=== PATIENT | male | born 1945 | race Caucasian/White ===

== ENCOUNTER 2020-02-06 10:48 | Emergency (ER) | payer MEDICARE, OTHER, SELFPAY ==
[2020-02-06 10:50] VITALS: BP 192/82; PULSE 76; RESP 16; TEMP 36.2; O2SAT 97; BMI 32.8
--- NOTE | 2020-02-06 11:14 | DI.RAD.S_ITS ---
PROCEDURE: XR CHEST 2V INDICATIONS: left chest/rib pain s/p fell directly on the chest yesterday TECHNIQUE: 2 views of the chest were acquired. COMPARISON: None. FINDINGS: Surgical changes and devices: None. Lungs and pleura: Lungs are clear. No pleural effusions or pneumothorax. Mediastinum: Mediastinal contours are normal. Heart size is normal. Bones and chest wall: No suspicious bony abnormalities. The ribs are not well evaluated due to superimposition. There is suspected cortical irregularity, technically age-indeterminate involving the left lateral fifth rib. Soft tissues appear unremarkable. IMPRESSION: No acute disease. Suspect left lateral fifth rib fracture. For further characterization and assessment, dedicated rib series could be performed Dictated by: Anthony Garcia M.D. on 02/06/2020 at 11:42 Approved by: Anthony Garcia M.D. on 02/06/2020 at 11:46
[2020-02-06] MEDS: ACETAMINOPHEN 325 MG TABLET 650 MG PO (11:29)
[2020-02-06] MEDS: LIDOCAINE PATCH 1 EACH ADH..PATCH TOP (11:29)
--- NOTE | 2020-02-06 11:33 | ED_ITS ---
HPI - Fall <Frantz Glo [facility] - Last Filed: 02/06/20 12:38> General Chief Complaint: Fall Stated Complaint: FELL YESTERDAY LEFT SIDE CHEST PAINS Time Seen by Provider: 02/06/20 10:57 Source: patient Mode of arrival: Ambulatory Limitations: no limitations History of Present Illness HPI Narrative: This is a 74 year male, formal smoker, who presents to ED with significant medical history as diabetes, CAD, hypertension, with chief complain of left chest wall pain. Patient had fall yesterday while he was walking his dog directly onto his chest with the hearing aid bluetooth caught in between his left-sided chest and ground. Patient denies chest pain, breathing difficulty, lightheadedness prior falling. Patient denies hitting his head, mid cervical tenderness, losing consciousness. He states he fell since his dog salt of rabbit and air born and pulled him to a ground. Patient reports pain improves when he splinting his chest and aggravates with coughing and changing position. Patient denies short of breath, dyspnea, or bruise on his chest. Patient has not used any ice pack or medications for his discomfort. Related Data Previous Rx's Medication Instructions Recorded cyclobenzaprine 5 - 10 mg PO BEDTIME PRN #7 tab 02/06/20 lidocaine 1 patch TOP Q24H #30 each 02/06/20 Allergies Allergy/AdvReac Type Severity Reaction Status Date / Time No Known Drug Allergies Allergy Verified 02/06/20 10:54 Review of Systems <Frantz Cody [facility] - Last Filed: 02/06/20 12:38> Review of Systems Narrative: General: Denies fever, chills, fatigue, malaise, sweats. HEENT: Denies sinus pain, ear pain, sore throat, difficulty swallowing, dizziness. Respiratory: Denies dyspnea, cough, wheezing, hemoptysis, sputum. Cardiovascular: See HPI Gastrointestinal: Denies nausea, vomiting, abdominal pain, diarrhea, constipation, melena. : Denies dysuria, frequency, incontinence, hematuria, urinary retention. Musculoskeletal: See HPI Skin: Denies rash, skin lesions, or other. Neurologic: Denies weakness, headache, numbness, change in speech, confusion, seizures, incoordination. Psychiatric: No concerning psychosocial issues. 12-point review of systems is negative except for those stated above. Patient History <[facility], [employer] - Last Filed: 02/06/20 12:38> Medical History (Updated 02/06/20 @ 12:32 by MICHELLE Sheppard) CAD (coronary artery disease) (Acute) Diabetes (Acute) Hypertension (Acute) Social History Smoking Status: Unknown if ever smoked Smoking Status: Unknown if ever smoked alcohol intake frequency: holidays/special occasions only Substance Use Type: does not use Exam <Frantz MenchacaMICHELLE Boateng - Last Filed: 02/06/20 12:38> Narrative Exam Narrative: GEN: Alert, oriented x 3, well appearing and nourished, and in no acute distress. Head: Normal cephalic, atraumatic. No scalp or temporal tenderness, palpable mass or rash. EYES: Pupils are equal, round, and reactive to light and accommodation. Extraocular muscles are intact bilaterally. There is no subconjunctival hemorrhage, exudate and sclera non-icteric. ENT: Hearing grossly intact. Nose without bleeding, purulent discharge. Throat without erythema, tonsillar hypertrophy or exudate. Uvula in midline, airway patent. Neck: Trachea in midline. No JVD, non-tender without lymphadenopathy. No masses or thyroid megaly. Supple, non-tender and no meningeal signs. CARDIAC: Normal regular rate and rhythm without murmurs, gallops, or rubs. Denies chest wall tenderness to palpate, reports pain is slightly deeper. No peripheral edema, cyanosis or pallor. Capillary refill is less than 2 seconds. RESPIRATORY: Lungs are clear to auscultate bilaterally. No cough, wheezes, rales, or rhonchi. No stridor, respiratory distress, increase work of breathing, or accessary muscle used. ABD: Abdomen soft, nontender and non-distended. No guarding or rebound tenderness to palpate. Bowel sounds are normal in all 4 quadrants. There is no palpable masses or organomegaly. EXT: Full painless ROM of all extremities with no loss of sensation, strength, effusion or edema. SKIN: Warm, dry, normal color for patient. No erythema, lesions or rash over visible areas. BACK: Nontender without deformity or crepitance. No flank tenderness. NEUROLOGICAL: Alert and oriented to place, time and person. Sensation and motor function intact bilaterally. No facial droops, dysphasia. PSYCHIATRIC: Good judgement and reason, without hallucinations, abnormal affect or abnormal behaviors during the examination. Initial Vital Signs Initial Vital Signs: Vital Signs Temperature 97.2 F L 02/06/20 10:50 Pulse Rate 76 02/06/20 10:50 Respiratory Rate 16 02/06/20 10:50 Blood Pressure 192/82 H 02/06/20 10:50 Pulse Oximetry 97 02/06/20 10:50 <Eufemia Heath DO - Last Filed: 02/06/20 13:13> Initial Vital Signs Initial Vital Signs: Vital Signs Temperature 97.2 F L 02/06/20 10:50 Pulse Rate 76 02/06/20 10:50 Respiratory Rate 16 02/06/20 10:50 Blood Pressure 192/82 H 02/06/20 10:50 Pulse Oximetry 97 02/06/20 10:50 Scores <MICHELLE Sheppard - Last Filed: 02/06/20 12:38> GCS [place] coma scale eye opening: Spontaneous [place] coma scale verbal response: Orientated [place]ty coma scale motor response: Obey commands [place] coma scale total score: 15 Course <MICHELLE Sheppard - Last Filed: 02/06/20 12:38> Orders Ordered: ED Orders 02/06/20 10:57 EKG-12 Lead Stat 02/06/20 11:14 XR chest 2V Stat Discontinued Medications Acetaminophen (Tylenol) 650 mg PO NOW ONE Stop: 02/06/20 11:15 Last Admin: 02/06/20 11:29 Dose: 650 mg Documented by: WES Lidocaine (Lidoderm) 1 each TOP NOW ONE Stop: 02/06/20 11:15 Last Admin: 02/06/20 11:29 Dose: 1 each Documented by: WES Vital Signs Vital signs: Vital Signs - 8 hr 02/06/20 10:50 02/06/20 12:06 Temperature 97.2 F L Pulse Rate 76 79 Respiratory Rate 16 18 Blood Pressure 192/82 H Blood Pressure [Left Arm] 143/79 H Pulse Oximetry 97 96 <Eufemia Heath DO - Last Filed: 02/06/20 13:13> Orders Ordered: ED Orders 02/06/20 10:57 EKG-12 Lead Stat 02/06/20 11:14 XR chest 2V Stat Discontinued Medications Acetaminophen (Tylenol) 650 mg PO NOW ONE Stop: 02/06/20 11:15 Last Admin: 02/06/20 11:29 Dose: 650 mg Documented by: WES Lidocaine (Lidoderm) 1 each TOP NOW ONE Stop: 02/06/20 11:15 Last Admin: 02/06/20 11:29 Dose: 1 each Documented by: WES Vital Signs Vital signs: Vital Signs - 8 hr 02/06/20 10:50 02/06/20 12:06 Temperature 97.2 F L Pulse Rate 76 79 Respiratory Rate 16 18 Blood Pressure 192/82 H Blood Pressure [Left Arm] 143/79 H Pulse Oximetry 97 96 MDM - Fall <MICHELLE Sheppard - Last Filed: 02/06/20 12:38> Differential Diagnosis Differential diagnosis: Likely other (Chest contusion, costal chondritis, rib fracture) Medical Records Attestation: I reviewed the patient's medical records. Imaging Data Chest x-ray: Radiologist's Impression: [address] [address] XRay Report Signed Patient: Gabriel Harvey PMR#: [id number] : 5Acct:[id number] Age/Sex: 74 / MDate of Service: 02/06/20 Loc: ED Accession Number: [id number] Procedure: XR chest 2V Ordering Provider: Frantz Cody PROCEDURE: XR CHEST 2V INDICATIONS: left chest/rib pain s/p fell directly on the chest yesterday TECHNIQUE: 2 views of the chest were acquired. COMPARISON: None. FINDINGS: Surgical changes and devices: None. Lungs and pleura: Lungs are clear. No pleural effusions or pneumothorax. Mediastinum: Mediastinal contours are normal. Heart size is normal. Bones and chest wall: No suspicious bony abnormalities. The ribs are not well evaluated due to superimposition. There is suspected cortical irregularity, technically age-indeterminate involving the left lateral fifth rib. Soft tissues appear unremarkable. IMPRESSION: No acute disease. Suspect left lateral fifth rib fracture. For further characterization and assessment, dedicated rib series could be performed Dictated by: Anthony Garcia M.D. on 02/06/2020 at 11:42 Approved by: Anthony Garcia M.D. on 02/06/2020 at 11:46 ECG Data Attestation: I personally reviewed and interpreted this ECG as follows: Prior ECG tracings: not available for review Interpretation: Sinus rhythm rate at 69 with right bundle branch block, left anterior fascicular block. Left axis dominant PRinterval 166, QRS duration 124, QRS/QTC 418/447 Abnormal EKG MDM Narrative Medical decision making narrative: This is a 74-year-old male who presents to ED with mid left anterior/lateral chest discomfort after he sustained a fall directly on his chest and bluetooth hearing aid device on affected site yesterday. Patient denies other injuries. There is no significant chest wall tenderness. No bruise or crepitus appreciated during physical exam. Patient denies short of breath. Chest x-ray shows left lateral 5th rib fracture and recommending dedicated rib series for further assessment. Patient was medicated with Tylenol and lidocaine patch for discomfort which improved his symptoms. Patient states cool head is helping his discomfort. Deep breathing exercise teaching was done by respiratory therapist using IS machine. Return precautions were discussed with the patient and patient discharged to home with as needed medication lidocaine patch 5% and Flexeril. Muscle relaxant medication precautions were discussed with the patient. Patient verbalized understanding and agreement with the treatment plan. Discharge Plan Departure Patient Disposition: Home Clinical Impression: Closed rib fracture Qualifiers: Encounter type: initial encounter Rib fracture type: single rib Laterality: left Qualified Code(s): S22.32XA - Fracture of one rib, left side, initial encounter for closed fracture Discharge Date/Time: 02/06/20 12:48 Instructions: DI for Rib Fracture Activity Restrictions/Additional Instructions: You have been diagnosed with [left 5th lateral rib closed fracture from fall.]. What to do: *Take your medications as directed. Please use [id number] Tylenol 650 mg up to 4 times a day as needed for discomfort. You can use lidocaine patch which stays on for 12 hours and off for 12 hours for pain as needed. Also you can use cyclobenzaprine/Flexeril which is muscle relaxant at night as needed for pain. Please utilize IS machine for deep breathing exercise 10 times every hour while your awake to prevent pneumonia and you can splint your chest during this. Lidocaine patch and Flexeril have been transmitted to [facility]. *Follow up with your primary care provider in 2-3 days, call for an appointment. Let them know you were seen in the ED and that we asked you to be seen in follow up. *Return to ED if you have any new, worsening, or concerning symptoms, such as [chest pain which is different from chest pain, breathing difficulty, unable to tolerate fluids, high fever, productive cough, feeling like faint or any acute concerns]. Prescriptions: New lidocaine 5 % adhesive patch,medicated 1 patch TOP Q24H Qty: 30 RF: 0 cyclobenzaprine 5 mg tablet 5 - 10 mg PO BEDTIME PRN (Reason: muscle spasm) Qty: 7 RF: 0 Referrals: Joshua Fraser MD [Primary Care Provider] -
[2020-02-06 12:06] VITALS: BP 143/79; PULSE 79; RESP 18; O2SAT 96
== END 2020-02-06 12:48 | disposition home or self-care (01) ==
PROVIDERS: Emergency Provider Nurse Practitioner Family; PCP Specialist
DX: S22.32XA Fracture of one rib, left side, initial encounter for closed fracture (principal); I25.10 Atherosclerotic heart disease of native coronary artery without angina pectoris; I10 Essential (primary) hypertension; E11.9 Type 2 diabetes mellitus without complications
CPT/HCPCS: 71046; 93005; 99284

== ENCOUNTER → 2021-07-24 12:41 | Outpatient (CLI) | payer MEDICARE, OTHER, SELFPAY | PROVIDERS: PCP Specialist; Visit Provider Nurse Practitioner Family | DX: T14.8XXA Other injury of unspecified body region, initial encounter (principal); L08.9 Local infection of the skin and subcutaneous tissue, unspecified | CPT/HCPCS: 87070; 87077; 87186; 87205 ==

== ENCOUNTER → 2022-02-10 14:06 | Outpatient (CLI) | payer MEDICARE, OTHER, SELFPAY ==
[2022-02-10 15:10] LABS: COVID19 -Nasal RAPID Negative (Negative)
== END ==
PROVIDERS: PCP Specialist; Referring Provider Internal Medicine; Visit Provider Internal Medicine
DX: Z20.822 Contact with and (suspected) exposure to COVID-19 (principal)
CPT/HCPCS: 87635; C9803

== ENCOUNTER → 2022-02-11 08:12 | Outpatient (CLI) | payer MEDICARE, OTHER, SELFPAY ==
--- NOTE | 2022-02-18 08:10 | PM.PFT.1 ---
Pulmonary Function Test Referral & Results Date Patient Seen: 02/11/22 Requesting provider: Shad Fish Results: The spirometry demonstrates an FVC of 3.03 L which is 70% of predicted. The FEV1 was measured at 2.52 L which is 81% of predicted. The FEV1/FVC ratio was 83 which is 115% of predicted. Following the administration of bronchodilator there was no appreciable change. Interpretation: This study demonstrates possibly very mild obstructive lung disease based on reduction FEV1 although FEV1/FVC ratio is preserved and there is no evidence of benefit following bronchodilator and shape a flow volume loop really does not support the presence of obstructive lung disease No lung volumes or diffusing capacity were performed
== END ==
PROVIDERS: PCP Student in an Organized Health Care Education/Training Program; Referring Provider Student in an Organized Health Care Education/Training Program; Visit Provider Student in an Organized Health Care Education/Training Program
DX: R05.3 Chronic cough (principal); Z87.891 Personal history of nicotine dependence
CPT/HCPCS: 94060

== ENCOUNTER 2022-07-11 10:22 | Day surgery (SDC) | payer MEDICARE, OTHER, SELFPAY ==
--- NOTE | 2022-07-11 | PATH_ITS ---
[facility] Accession Number: [id number] . 01 Material submitted: . PART A: gastrointestinal site - GASTRIC BODY POLYP PART B: colon - TRANSVERSE COLON POLYP X2 PART C: sigmoid colon - SIGMOID COLON POLYP X2 . 01 Diagnosis: A. Stomach, Body Polyp, Biopsy: Gastric hyperplastic polyp. No evidence of Helicobacter on H/E stain. Negative for intestinal metaplasia. Negative for dysplasia and malignancy. . B. Transverse Colon, Polyp x2, Biopsies: Tubular adenomas. . C. Sigmoid Colon, Polyp x2, Biopsy: Tubular adenoma in one of two fragments. One fragment of colonic mucosa with features suggestive of mucosal prolapse. MRV 07/13/2022 1537 Local . 01 Electronically signed: . Radha Little MD, Pathologist NPI- [id number] . 01 Gross description: . Part A: GASTRIC BODY POLYP: Received in formalin is 1 fragment(s) of lemon, soft tissue measuring 0.5 x 0.5 x 0.4 cm submitted entirely in 1 cassette(s) Part B: TRANSVERSE COLON POLYP X2: Received in formalin are 2 fragment(s) of lemon, soft tissue measuring 0.3 x 0.2 x 0.2 cm to 0.9 x 0.5 x 0.4 cm submitted entirely in 1 cassette(s) Part C: SIGMOID COLON POLYP X2: Received in formalin are 2 fragment(s) of lemon, soft tissue measuring 0.6 x 0.6 x 0.4 cm to 1.1 x 0.4 x 0.3 cm submitted entirely in 1 cassette(s) /ALMAZ 07/12/2022 1900 Local . 01 Pathologist provided ICD-10: D12.3, D12.5 . 01 CPT . 262234, [id number], [id number] Specimen Comment: A courtesy copy of this report has been sent to [phone] Specimen Comment: [id number], Performed at: 01 [facility] [address] [place] [address] [id number] MD Benny Alcantara MD Phone: [phone]
[2022-07-11 10:46] VITALS: BP 156/69; PULSE 76; RESP 20; TEMP 35.8; O2SAT 96; BMI 34.0
[2022-07-11] MEDS: SODIUM CHLORIDE 0.9% 1,000 ML 70 ML IV (10:56)
--- NOTE | 2022-07-11 10:56 | PM.HP.1 ---
History of Present Illness History of Present Illness Date Patient Seen: 07/11/22 Chief complaint: SDC Narrative: 76-year-old male with a history of GERD and cough who is here for further evaluation. He was seen at the office in May 2022, please refer to that note for further details. Patient also has a family history of colon cancer and personal history of colon polyps and is due for surveillance Patient History Medical History (Updated 07/24/21 @ 12:42 by MICHELLE Carrillo) CAD (coronary artery disease) Diabetes Hypertension Family & Social History Social History: household members spouse Tobacco & Substance use: Smoking Status Unknown if ever smoked alcohol intake current alcohol intake frequency holiday/special occasion Substance Use Type does not use Meds Home Medications and Allergies Home Medications Medication Instructions Recorded Confirmed Type aspirin 81 mg tablet,delayed 81 mg PO DAILY 07/24/21 07/11/22 History release (Adult Low Dose Aspirin) dulaglutide 1.5 mg/0.5 mL 1.5 mg SUBCUT QWEEK 07/24/21 07/11/22 History subcutaneous pen injector (Trulicity) insulin glargine 100 unit/mL (3 60 unit SUBCUT QPM 07/24/21 07/11/22 History mL) subcutaneous pen (Lantus Solostar U-100 Insulin) metformin 1,000 mg tablet 1,000 mg PO BID 07/24/21 07/11/22 History simvastatin 10 mg tablet 10 mg PO DAILY 07/24/21 07/11/22 History lidocaine 5 % topical patch 1 patch topical Q24H PRN Pain 07/11/22 07/11/22 History (Scale Score 1-3) Allergies Allergy/AdvReac Type Severity Reaction Status Date / Time No Known Drug Allergies Allergy Verified 07/11/22 10:44 Exam Vital Signs (past 8 hours): - 07/11/22 10:46 Temperature 96.5 F L Pulse Rate 76 Respiratory Rate 20 Blood Pressure 156/69 H Pulse Oximetry 96 Oxygen Delivery Method Room Air Oxygen Flow Rate 0 Oxygen Delivery Method Room Air Oxygen Flow Rate 0 Narrative Exam Narrative: General: Patient is obese, not in apparent distress Cardiovascular: Regular rate and rhythm, no murmurs, rubs, or gallops; no evidence of edema; no palpable abdominal aortic aneurysm Gastrointestinal: Normoactive bowel sounds, soft, nontender, nondistended, no rebound tenderness, no hepatosplenomegaly, no evidence of hernia Assessment & Plan Assessment & Plan narrative: 76-year-old male with history of GERD symptoms who is here for further evaluation. Patient is also due for colon polyp surveillance Regarding the procedure(s), the risks and potential complications, benefits, and alternatives (including not doing the procedure) were discussed with the patient. The risks include but are not limited to bleeding, splenic injury, infection, perforation which may require surgical intervention, missed lesions, and adverse reactions to sedative medicines. After a question and answer period, the patient agreed to proceed with the procedure(s) and gives informed consent. Time Spent With Patient Critical Care time: I spent a total of [] minutes of critical care time on this patient's care today; this time is exclusive of procedural time.
--- NOTE | 2022-07-11 11:26 | P.OP.EGD&C_ITS ---
Operative Date/Time/Diagnoses Date of procedure: 07/11/22 Procedure Notes Procedure in detail: Surgeon: Baldev Eduardo MD Procedure: Esophagogastroduodenoscopy with polypectomy and colonoscopy with polypectomy x4 Preoperative diagnosis: GERD, cough, personal history colon polyps, family history colon cancer Postoperative diagnosis: Small hiatal hernia, gastric body polyp status post polypectomy; colon polyps x4 status post polypectomy; sigmoid diverticulosis; grade 2 internal and external hemorrhoids Medications: Moderate anesthesia care Preanesthesia Assessment An H and P was performed/updated and the Px?s ASA class is 3. The procedure was discussed in detail with the patient. The potential risks and complications including infection, bleeding, missed lesions, perforation, need for surgery in case of perforation, prolonged hospital stay, and were explained. A brief question and answer period was allotted and once all questions were answered, informed consent was obtained. The patient was brought back to the procedure room and placed on standard monitoring. The patient?s vital signs were monitored continuously throughout the entire procedure. Prior to starting, a timeout was performed to confirm the patient?s identity, allergies, medications, and procedure. Procedure in detail The patient was placed in left lateral decubitus position and a bite block was inserted. The tip of the upper endoscope was placed into the mouth and advanced without difficulty under direct visualization into the esophagus. Esophagus: The entire examined esophagus appeared normal. The Z-line was regular with no evidence of Gonzalez's esophagus Stomach: A 8 mm sessile polyp was found in the gastric body and was removed by means of cold snare. Resection retrieval was complete with minimal bleeding. Retroflexion was performed in the stomach which revealed no lesions in the cardia and fundus. A 1 cm sliding hiatal hernia was visualized Duodenum: The entire examined duodenum which was normal up until the 2nd portion of the duodenum After the upper endoscopy, preparations were made for the colonoscopy. A VENUS was performed. The digital rectal examination revealed large external hemorrhoids but did not reveal any palpable intrarectal lesions. The tip of the colonoscope was placed in the anal canal and advanced without difficulty all the way to the cecum which was identified by the appendiceal orifice and the ileocecal valve. The terminal ileum was intubated for a distance of 5 cm from the ileocecal valve and appeared normal In the transverse colon, a 6 mm sessile polyp was removed by means of cold snare. Resection and retrieval was complete with minimal bleeding. In the transverse colon, a 2 mm sessile polyp was removed by means of cold Jumbo forceps. Resection and retrieval was complete with minimal bleeding. In the sigmoid colon, 2 semi sessile polyps measuring 4-5 mm were removed by means of cold snare. Resection and retrieval was complete with minimal bleeding. There is note of a few small sigmoid diverticula Retroflexion was performed in the rectum which revealed grade 2 internal hemorrhoids The patient tolerated the procedure well and will be brought back to the recovery area to be discharged once criteria are met. The prep was judged to be good and adequate to identify polyps less than 5 mm. The withdrawal time was 14 minutes. Complications There were no complications and estimated blood loss was minimal. Recommendations Resume previous diet Continue outpatient medications Follow-up pathology results Repeat colonoscopy in 3 or 5 years depending on pathology results Call our office ([facility]) to schedule follow-up with Dr Dobbins An emergency contact number was given to the patient for any complications related to the procedure
[2022-07-11 11:27] LABS: COVID19 -Nasal RAPID Negative (Negative)
[2022-07-11 12:03] VITALS: BP 114/63; PULSE 71; RESP 16; TEMP 36.6; O2SAT 97
[2022-07-11 12:08] VITALS: BP 127/64; PULSE 76; RESP 12; O2SAT 99
[2022-07-11 12:15] VITALS: BP 140/66; PULSE 67; RESP 12; O2SAT 95
[2022-07-11 12:20] VITALS: BP 140/66; PULSE 66; RESP 14; TEMP 36.7; O2SAT 100
--- NOTE | 2022-07-11 12:46 | SUR.PHASEII ---
Patient ambulated to wheelchair with steady gait. Tolerated fluids. Provided discharge instructions verbal/written. Patient stated understanding. discharged patient by wheelchair to private vehicle in stable condition. See flowsheet for assessment details.
== END 2022-07-11 12:42 | disposition home or self-care (01) ==
PROVIDERS: PCP Student in an Organized Health Care Education/Training Program; Referring Provider Internal Medicine Gastroenterology; Visit Provider Internal Medicine Gastroenterology
PROC: 0DJ08ZZ Inspection of Upper Intestinal Tract, Via Natural or Artificial Opening Endoscopic (ICD-10-PCS; CPT 43235; principal; 2022-07-11 11:30)
PROC: 0DJD8ZZ Inspection of Lower Intestinal Tract, Via Natural or Artificial Opening Endoscopic (ICD-10-PCS; CPT 45378; 2022-07-11 11:30)
DX: Z12.11 Encounter for screening for malignant neoplasm of colon (principal); Z80.0 Family history of malignant neoplasm of digestive organs; K21.9 Gastro-esophageal reflux disease without esophagitis; Z86.010 Personal history of colon polyps; I10 Essential (primary) hypertension; E11.9 Type 2 diabetes mellitus without complications; Z79.4 Long term (current) use of insulin; Z79.84 Long term (current) use of oral hypoglycemic drugs; E78.00 Pure hypercholesterolemia, unspecified; Z20.822 Contact with and (suspected) exposure to COVID-19; K44.9 Diaphragmatic hernia without obstruction or gangrene; K57.30 Diverticulosis of large intestine without perforation or abscess without bleeding; K64.4 Residual hemorrhoidal skin tags; K64.8 Other hemorrhoids; K31.7 Polyp of stomach and duodenum; D12.3 Benign neoplasm of transverse colon; D12.5 Benign neoplasm of sigmoid colon
CPT/HCPCS: 43251; 45385; 45380; 87635; C9803; J2704